=== PATIENT | female | born 1960 | race Two or more races ===

== ENCOUNTER 2016-03-27 09:09 | Inpatient (IN) | payer OTHER ==
[~2016-03-27] VITALS: Ht 154.9 cm; Wt 97.0 kg
[~2016-03-27 09:09] MED LIST: ADULT FOLDING1 EACH MC; AMPICILLIN SODIU1 GM IV; AMPICILLIN SODIU2 GM IV; ASPIR-LOW81 MG PO; BISOPROLOL-HCT1 EAC2 PO; CAMBIA50 MG PO; CYMBALTA30 MG PO; DICLOFENAC POTA50 MG PO; DYAZIDE, MA1 CAPSULE PO; HYDROCHLOROTHIA25 MG PO; LISINOPRIL5 MG PO; LO-DOSE ASPIRIN81 M2 PO; LOVENOX40 MG/0.4 SC; LYRICA150 MG PO; MORPHINE SULFAT15 M1 PO; NEURONTIN300 MG PO; NITROSTAT0.4 MG SL; NORTRIPTYLINE H25 MG PO; OMEPRAZOLE40 M1 PO; OXYCODONE HCL10 MG PO; OXYCODONE HCL5 MG PO; PRAVACHOL40 MG PO; PRAVASTATIN SOD40 MG PO; RECTICARE30 GM TP; ROXICODONE15 MG PO; TYLENOL EXTRA500 MG PO; TYLENOL REGULA325 MG PO; TYLENOL WITH C1 EACH PO; VANCOMYCIN1 GM/200 M IV
[2016-03-27 10:06] VITALS: BP 126/61
[2016-03-27 15:54] LABS: HEMATOCRIT 44.9 % (36.0-46.0); MCH 29.8 PG (29.0-34.0); MCHC 33.4 G/DL (30.0-36.0); MCV 89.1 FL (83-99); MEAN PLAT.VOLUME 9.5 uM^3 (9.5-12.4); PLATELET COUNT 221 K/uL (156-360); RBC DIS.WIDTH-CV 14.8 % (11.8-14.6); RBC DIS.WIDTH-SD 47.9 % (39-53); RED BLOOD COUNT 5.04 M/uL (3.80-5.20)
[2016-03-27 16:07] LABS: WHITE BLOOD COUNT 16.7 K/uL (4.1-10.2)
[2016-03-27 17:42] VITALS: BP 136/62
[2016-03-27 19:40] VITALS: BP 126/59
[2016-03-27 23:40] VITALS: BP 136/63
[2016-03-28 04:54] VITALS: BP 143/65
[2016-03-28 07:22] LABS: HEMATOCRIT 40.4 % (36.0-46.0); MCV 88.6 FL (83-99)
[2016-03-28 07:35] LABS: ANION GAP 8 MEQ/L (2-14); CHLORIDE 106 MEQ/L (99-109); GFR ESTIMATE (CALCULATED) > 59 mL/min/; GLUCOSE 91 mg/dL (70-99); POTASSIUM 4.3 MEQ/L (3.7-5.4); SAMPLE HEMOLYSIS CHECK 0; SAMPLE ICTERIC CHECK 0; SAMPLE LIPEMIA CHECK 0; SODIUM 137 MEQ/L (136-147); UREA NITROGEN (BUN) 17 mg/dL (9-23)
[2016-03-28 08:08] VITALS: BP 124/58
[2016-03-28 11:56] VITALS: BP 144/65
[2016-03-28 16:00] VITALS: BP 121/58
[2016-03-28 23:52] VITALS: BP 141/63
[2016-03-29 05:58] LABS: HEMATOCRIT 38.6 % (36.0-46.0); MCV 89.8 FL (83-99)
[2016-03-29 06:24] LABS: ANION GAP 8 MEQ/L (2-14); CHLORIDE 104 MEQ/L (99-109); GFR ESTIMATE (CALCULATED) > 59 mL/min/; GLUCOSE 108 mg/dL (70-99); POTASSIUM 4.1 MEQ/L (3.7-5.4); SAMPLE HEMOLYSIS CHECK 0; SAMPLE ICTERIC CHECK 0; SAMPLE LIPEMIA CHECK 0; SODIUM 138 MEQ/L (136-147); UREA NITROGEN (BUN) 21 mg/dL (9-23)
[2016-03-29 07:55] VITALS: BP 175/78
[2016-03-29] MEDS ORDERED: ENDOCET 5-3251 EACH PO (09:43)
[2016-03-29] MEDS ORDERED: SENNA PLUS TAB1 EACH PO (09:43)
[2016-03-29] MEDS ORDERED: LOVENOX40 MG/0.4 SC (09:43)
== END 2016-03-29 13:06 | disposition home health service (06) | DRG 467 ==
LOC: 2SOUTH 09:09 → 3EAST 09:20 → 2SOUTH 09:20 → 3EAST 17:28
PROVIDERS: Orthopaedic Surgery; Physician Assistant
DX: T84.53XA Infection and inflammatory reaction due to internal right knee prosthesis, initial encounter (principal); F33.9 Major depressive disorder, recurrent, unspecified; Z68.41 Body mass index [BMI] 40.0-44.9, adult; I10 Essential (primary) hypertension; K21.9 Gastro-esophageal reflux disease without esophagitis; Z96.651 Presence of right artificial knee joint; F17.210 Nicotine dependence, cigarettes, uncomplicated; M19.90 Unspecified osteoarthritis, unspecified site; I25.10 Atherosclerotic heart disease of native coronary artery without angina pectoris; E78.5 Hyperlipidemia, unspecified; E66.3 Overweight; Z86.718 Personal history of other venous thrombosis and embolism; Z98.1 Arthrodesis status
CPT/HCPCS: 71010; 73560; 80048; 85014; 85018; 85027; 88305; 88331; C1776; J0131; J0690; J1100; J1170; J1200; J1650; J1885; J2250; J2405; J3010; J3370; J7030; J7050

== ENCOUNTER 2017-05-06 09:51 | Emergency (ER) | payer OTHER ==
[~2017-05-06] VITALS: Ht 154.9 cm; Wt 96.1 kg
[~2017-05-06 09:51] MED LIST changes: +ENDOCET 5-3251 EACH PO; +SENNA PLUS TAB1 EACH PO
[2017-05-06 10:29] LABS: HEMATOCRIT 47.5 % (36.0-46.0); HEMOGLOBIN 16.6 G/DL (11.9-15.5); MCHC 34.9 G/DL (30.0-36.0); MCV 94.4 FL (83-99); PLATELET COUNT 274 K/uL (156-360); RBC DIS.WIDTH-CV 12.6 % (11.8-14.6); RBC DIS.WIDTH-SD 43.9 % (39-53); RED BLOOD COUNT 5.03 M/uL (3.80-5.20)
[2017-05-06 10:37] LABS: CHLORIDE 104 mEq/L (99-109); POTASSIUM 4.5 mEq/L (3.7-5.4); SODIUM 136 mEq/L (136-147)
[2017-05-06 10:39] LABS: GLUCOSE 111 mg/dL (70-99)
[2017-05-06 10:43] LABS: CREATININE 0.7 mg/dL (0.6-1.3); GFR ESTIMATE (CALCULATED) > 59 mL/min/
[2017-05-06 10:44] LABS: UREA NITROGEN (BUN) 20 mg/dL (9-23)
[2017-05-06] MEDS ORDERED: BACTRIM,SEPT1 TABLET PO (11:07)
[2017-05-06] MEDS ORDERED: ULTRAM50 MG PO (11:14)
[2017-05-06 11:56] VITALS: BP 102/84
== END 2017-05-06 11:56 | disposition home or self-care (01) ==
LOC: EDBD 09:51 → EME 09:51
PROVIDERS: Emergency Medicine
DX: M79.675 Pain in left toe(s) (principal); Z98.890 Other specified postprocedural states; M79.7 Fibromyalgia; F41.9 Anxiety disorder, unspecified; F32.9 Major depressive disorder, single episode, unspecified; F17.200 Nicotine dependence, unspecified, uncomplicated; Z86.718 Personal history of other venous thrombosis and embolism; Z96.651 Presence of right artificial knee joint
CPT/HCPCS: 73660; 80048; 85027; 99281; 99284

== ENCOUNTER → 2017-05-10 | Outpatient (CLI) | payer OTHER ==
[~2017-05-10] MED LIST changes: +BACTRIM,SEPT1 TABLET PO; +ULTRAM50 MG PO
== END | disposition home or self-care (01) ==
LOC: PICC 08:24
DX: M86.9 Osteomyelitis, unspecified (principal)
CPT/HCPCS: 76937